=== PATIENT | male | born 1990 ===

== ENCOUNTER 2023-12-01 14:35 | Outpatient (REF) | payer OTHER, SELFPAY ==
[2023-12-01 21:29] LABS: HCT 44.9 % (40.0-50.0); HGB 15.4 g/dL (13.5-17.5); MCHC 34.3 % (32.0-36.0); MCV 87 fL (80-95); MPV 11.3 fL (8.0-11.0); Platelet Count 215 10^3/uL (130-400); RBC 5.14 10^6/uL (4.36-5.78); RDW 12.3 % (11.8-14.1); RDW-SD 39.2 fL
[2023-12-01 22:01] LABS: ALT 62 U/L (16-63); AST 40 U/L (15-37); Albumin 4.6 g/dL (3.4-5.0); Alkaline Phosphatase 95 U/L (46-116); BUN 13 mg/dL (7-18); Bilirubin, Total 0.69 mg/dL (0.2-1.0); Calcium 9.6 mg/dL (8.5-10.1); Calculated LDL 158 mg/dL (<100); Chloride 108 mmol/L (98-107); Cholesterol 240 mg/dL (<200); Estimated GFR 101.92 (mL/min/1.73m2); Glucose 94 mg/dL (74-106); HDL Cholesterol 63 mg/dL (40-60); Potassium 4.3 mmol/L (3.5-5.1); Sodium 145 mmol/L (136-145); TSH (W/Ref FT4) 1.85 uIU/mL (0.36-3.74); Total Protein 7.6 g/dL (6.4-8.2); Triglyceride 96 mg/dL (<150); Vitamin D 25 Total 36.5 ng/mL (30-100)
== END 2023-12-01 14:36 | disposition home or self-care (01) ==
LOC: NCHCN 14:35
PROVIDERS: Visit Provider Family Medicine
DX: E78.2 Mixed hyperlipidemia (principal); E55.9 Vitamin D deficiency, unspecified; R42 Dizziness and giddiness
CPT/HCPCS: 80053; 80061; 82306; 85027; 84443